=== PATIENT | male | born 1985 | race African-American/Black ===

== ENCOUNTER 2022-08-12 18:40 | Observation (INO) | payer SELFPAY ==
[2022-08-12 19:02] VITALS: BMI 29.8
[2022-08-12] MEDS ORDERED: SODIUM CHLORIDE 0.9% 500 ML INFUS.BAG IV ONE (20:49)
[2022-08-12 22:07] LABS: BASO % 0.4 % (0-2.0); EOS % 0.3 % (0-4.5); HEMATOCRIT 44.7 % (35.4-49); HEMOGLOBIN 14.8 GM/dL (11.7-16.9); LYMPH % 22.8 % (8-40); MCH 30.6 pg (25.7-33.7); MCHC 33.1 g/dl (32.0-35.9); MEAN CELL VOLUME 92.6 fl (80-96); MEAN PLT VOLUME 7.5 fl (7.5-11.1); MONO % 6.6 % (3.8-10.2); NEUT % 69.9 % (42.8-82.8); PLATELET COUNT 442 10^3/uL (134-434); RBC 4.83 M/mm3 (4.00-5.60); RDW 15.8 % (11.9-15.9); WHITE BLOOD COUNT 7.2 K/mm3 (4.0-10.0)
[2022-08-12 22:30] LABS: CHLORIDE 104 mmol/L (98-107); SODIUM 139 mmol/L (136-145)
[2022-08-12 22:32] LABS: ANION GAP 7 MMOL/L (8-16); CALCIUM 9.6 mg/dL (8.5-10.1); CO2 28 mmol/L (21-32); GLUCOSE,RANDOM 110 mg/dL (74-106)
[2022-08-12 22:35] LABS: CREATININE 1.2 mg/dL (0.55-1.3); SGOT/AST 20 U/L (15-37); SGPT/ALT 37 U/L (13-61)
[2022-08-12 22:37] LABS: BILIRUBIN,TOTAL 0.3 mg/dL (0.2-1); TOT PROT 8.5 g/dl (6.4-8.2)
[2022-08-12 22:38] LABS: ALK PHOS 128 U/L (45-117)
[2022-08-13] MEDS: LACTATED RINGERS SOLUTION 1,000 ML/1,000 ML INFUS.BAG IV SCH (06:02)
[2022-08-13] MEDS: ENOXAPARIN NA (PORCINE) 40 MG/0.4 ML DISP.SYRIN SQ SCH (10:42)
[2022-08-14 00:17] VITALS: RESP 18
[2022-08-14] MEDS: ENOXAPARIN NA (PORCINE) 40 MG/0.4 ML DISP.SYRIN SQ SCH (09:12)
[2022-08-14] MEDS: LACTATED RINGERS SOLUTION 1,000 ML/1,000 ML INFUS.BAG IV SCH (09:13)
[2022-08-14 12:00] LABS: METHADONE, UR NEGATIVE (NEGATIVE); URINE AMPHETAMINES NEGATIVE (NEGATIVE); URINE BENZODIAZEPINES NEGATIVE (NEGATIVE)
[2022-08-14 12:01] LABS: COCAINE, UR NEGATIVE (NEGATIVE); OPIATES, URI NEGATIVE (NEGATIVE); PHENCYCLIDINE,URINE NEGATIVE (NEGATIVE); URINE BARBITURATES NEGATIVE (NEGATIVE)
[2022-08-14 13:08] VITALS: BP 135/84; PULSE 88; TEMP 98.8
== END 2022-08-14 16:54 | disposition home or self-care (01) ==
LOC: JER 18:40 → UNDOADMOB 20:21 → JERBED 20:21 → INTOOBSV 08-13 00:29 → OBSVTOIN 08-13 00:29 → J4S 08-13 00:33 → JERBED 08-13 00:33 → J4S 08-13 07:45
PROVIDERS: ADMIT Internal Medicine; ATTEND Nurse Practitioner Acute Care
PROC: 3E0337Z Introduction of Electrolytic and Water Balance Substance into Peripheral Vein, Percutaneous Approach (ICD-10-PCS; principal; 2022-08-13)
DX: T50.902A Poisoning by unspecified drugs, medicaments and biological substances, intentional self-harm, initial encounter (principal); T14.91XA Suicide attempt, initial encounter; Z29.8 Encounter for other specified prophylactic measures; R07.9 Chest pain, unspecified; Y92.89 Other specified places as the place of occurrence of the external cause; Z91.013 Allergy to seafood
CPT/HCPCS: 80053; 80307; 84484; 85025; 93005; 93010; 99285-25; C9803-CS; G0378; U0003; U0005